=== PATIENT | female | born 1990 | race Two or more races ===

== ENCOUNTER 2019-08-17 01:01 | Observation (INO) | payer OTHER, SELFPAY ==
[~2019-08-17] VITALS: Ht 157.5 cm; Wt 64.0 kg
[2019-08-17] MEDS ORDERED: ONDANSETRON 2MG/ML, 2ML ONE ×2 (01:58→09:47)
[2019-08-17] MEDS ORDERED: MORPHINE SULFATE 4 MG/ML, 1ML ONE (01:58)
[2019-08-17] MEDS ORDERED: SODIUM CHLORIDE FLUSH 10ML SYR IVF ONE (02:00)
[2019-08-17] MEDS ORDERED: ONDANSETRON 2MG/ML, 2ML IVPush ONE (02:00)
[2019-08-17] MEDS ORDERED: MORPHINE SULFATE 4 MG/ML, 1ML IVPush PRN ×2 (02:00→04:00)
[2019-08-17 02:06] LABS: BASOPHILS # (AUTO) 0.01 x10^3/uL (0-0.1); BASOPHILS % (AUTO) 0 % (0-1); EOSINOPHILS # (AUTO) 0.01 x10^3/uL (0-0.4); EOSINOPHILS % (AUTO) 0 % (1-7); LYMPHOCYTES # (AUTO) 0.87 x10^3/uL (1-3.4); LYMPHOCYTES % (AUTO) 6 % (22-44); MD NO; MEAN CORPUSCULAR HEMOGLOBIN 32.2 pg (27.0-34.8); MEAN CORPUSCULAR HGB CONC 33.3 g/dL (32.4-35.8); MEAN CORPUSCULAR VOLUME 96.8 fL (80-100); MEAN PLATELET VOLUME 9.7 fL (7.4-10.4); MONOCYTES # (AUTO) 0.28 x10^3/uL (0.2-0.8); MONOCYTES % (AUTO) 2 % (2-9); NEUTROPHILS # (AUTO) 12.43 x10^3/uL (1.8-6.8); NEUTROPHILS % (AUTO) 91 % (42-75); PLATELET COUNT 196 x10^3/uL (130-400); RED BLOOD COUNT 3.72 x10^6/uL (3.82-5.3); RED CELL DISTRIBUTION WIDTH 12.3 % (9.6-15.2)
[2019-08-17 02:16] LABS: ALANINE AMINOTRANSFERASE 21 U/L (12-78); ALBUMIN 4.1 g/dL (3.4-5.0); ANION GAP 7 mmol/L (5-15); CALCIUM 8.5 mg/dL (8.5-10.1); CHLORIDE 101 mmol/L (98-107); CREATININE 0.66 mg/dL (0.55-1.02)
[2019-08-17 02:20] LABS: ALKALINE PHOSPHATASE 71 U/L (45-117); BILIRUBIN,TOTAL 0.6 mg/dL (0.2-1.0); TOTAL PROTEIN 7.3 g/dL (6.4-8.2)
--- NOTE | 2019-08-17 02:26 | NUR ---
Pt amblated to BR with steady gait. UA collected and sent. Pt declines meds at this time. IV access obtained for CT. Call light in reach.
[2019-08-17 02:32] LABS: MICROSCOPIC NOT IND
--- NOTE | 2019-08-17 02:50 | NUR ---
Pt to CT via w/c
[2019-08-17] MEDS ORDERED: OMNIPAQUE 350 MG/ML, 100ML BOTTLE ONE (02:57)
--- NOTE | 2019-08-17 03:20 | NUR ---
Pt return from CT. Up to BR with steady gait. VSS. Report to Jonathan ZENDEJAS.
--- NOTE | 2019-08-17 03:21 | NUR ---
REPORT FROM BRISSA ZENDEJAS.
[2019-08-17] MEDS ORDERED: PIPERACILLIN/TAZO/PMX 3.375GM 50 ML ONE (03:23)
[2019-08-17] MEDS ORDERED: PIPERACILLIN/TAZO/PMX 3.375GM 50 ML IV ONE (03:30)
[2019-08-17] MEDS ORDERED: SODIUM CHLORIDE 0.9% 1,000 ML IV ONE (03:42)
--- NOTE | 2019-08-17 03:43 | NUR ---
PT RESTING ON GURNEY, MEDICATED PER MAY. VSS. FAMILY MEMBER AT BEDSIDE, CALL [facility] WITHIN REACH. PT DECLINES PAIN MEDICATION AT THIS TIME.
[2019-08-17] MEDS ORDERED: LEVO75TA5 PO (03:58)
[2019-08-17] MEDS ORDERED: ONDANSETRON 2MG/ML, 2ML IVPush PRN ×2 (04:00→10:30)
[2019-08-17] MEDS ORDERED: PROMETHAZINE 25 MG/ML, 1ML IM PRN (04:00)
[2019-08-17] MEDS ORDERED: SODIUM CHLORIDE FLUSH 10ML SYR IVF PRN (04:00)
--- NOTE | 2019-08-17 04:20 | NUR ---
REPORT GIVEN TO MICHAEL ZENDEJAS.
[2019-08-17 05:00] VITALS: BP 102/65
[2019-08-17 07:24] VITALS: BP 102/65
[2019-08-17] MEDS ORDERED: CHLORHEXIDINE 15 ML UDC ONE (08:59)
[2019-08-17] MEDS ORDERED: CHLORHEXIDINE 15 ML UDC MM ONE (09:00)
[2019-08-17] MEDS ORDERED: MIDAZOLAM 1 MG/ML, 2ML ONE (09:08)
[2019-08-17] MEDS ORDERED: FENTANYL PF 250 MCG/5ML ONE (09:08)
[2019-08-17 09:11] VITALS: BP 110/71
[2019-08-17] MEDS ORDERED: BUPIVACAINE/PF 0.5% ONE (09:11)
[2019-08-17] MEDS ORDERED: KETOROLAC 30 MG/1 ML ONE ×2 (09:47→10:40)
[2019-08-17] MEDS ORDERED: PROPOFOL 10 MG/ML, 20ML ONE (09:47)
[2019-08-17] MEDS ORDERED: SUGAMMADEX 200 MG/2 ML IVPush ONE (09:47)
[2019-08-17] MEDS ORDERED: ROCURONIUM 10 MG/ML,10ML ONE (09:47)
[2019-08-17] MEDS ORDERED: CEFAZOLIN 1,000 MG ONE (09:47)
[2019-08-17] MEDS ORDERED: DEXAMETHASONE 4 MG/ML, 1ML ONE (09:47)
[2019-08-17] MEDS ORDERED: SUCCINYLCHOLINE 20 MG/ML, 10ML ONE (09:47)
[2019-08-17] MEDS ORDERED: HYDROmorphone 1 MG/ML, 1ML INJ IV PRN (10:30)
[2019-08-17] MEDS ORDERED: DIAZEPAM 5 MG/ML, 2ML IV PRN ×2 (10:30)
[2019-08-17] MEDS ORDERED: hydrALAzine 20 MG/ML, 1ML IV PRN (10:30)
[2019-08-17] MEDS ORDERED: OXYcodone 5 MG/5 ML ORAL.SOL UDC PO PRN (10:30)
[2019-08-17] MEDS ORDERED: PROMETHAZINE 25 MG/ML, 1ML IV PRN (10:30)
[2019-08-17] MEDS ORDERED: METOCLOPRAMIDE 5 MG/ML, 2ML IV PRN (10:30)
[2019-08-17] MEDS ORDERED: LABETALOL 5MG/ML, 20ML IV PRN (10:30)
[2019-08-17] MEDS ORDERED: KETOROLAC 30 MG/1 ML IV PRN (10:30)
[2019-08-17] MEDS ORDERED: ALBUTEROL SULFATE 2.5 MG/3 ML NPPB PRN (10:30)
[2019-08-17] MEDS ORDERED: MEPERIDINE/PF 25MG/0.5ML IVPush PRN (10:30)
[2019-08-17] MEDS ORDERED: FENTANYL PF 100 MCG/2ML ONE (10:40)
[2019-08-17] MEDS ORDERED: OXYcodone 5 MG/5 ML ORAL.SOL UDC ONE (10:41)
[2019-08-17] MEDS: FENTANYL PF 100 MCG/2ML IV PRN ×2 (10:44→10:51)
[2019-08-17 13:15] VITALS: BP 104/57
== END 2019-08-17 15:04 | disposition home or self-care (01) ==
LOC: ED 03:47 → INTOOBSV 03:56 → EDIP 03:56 → 4NE 04:35
PROVIDERS: ADMIT Surgery; ATTEND Surgery
DX: Z03.818 Encounter for observation for suspected exposure to other biological agents ruled out (principal); K35.30 Acute appendicitis with localized peritonitis, without perforation or gangrene
CPT/HCPCS: 36415; 44970; 74177; 80053; 81003; 83690; 84703; 85025; 88304; 96365; 99285; G0378; J0330; J0690; J1100; J1885; J2250; J2405; J2543; J2704; J3010; J7030; Q9967; S0020; U0001